=== PATIENT | male | born 1980 | race Caucasian/White ===

== ENCOUNTER 2022-04-16 12:26 | Observation (INO) | payer BC ==
[~2022-04-16] VITALS: Ht 177.8 cm; Wt 84.5 kg
[2022-04-16 12:53] LABS: BASO # 0.1 K/mm3 (0.0-0.2); BASO % 1.1 % (0.0-2.0); EOS # 0.1 K/mm3 (0.0-0.7); EOS % 1.1 % (0.0-4.0); GRAN # 4.5 K/mm3 (1.4-6.5); GRAN % 70.4 % (42.2-75.2); HEMATOCRIT 46.3 % (42.0-52.0); LYMPH # 1.3 K/mm3 (1.2-3.4); LYMPH % 20.8 % (20.0-51.0); MEAN CELL VOLUME 83 fl (80.0-100.0); MEAN CORPUSCULAR HEMOGLOBIN 29 pg (27-31); MEAN CORPUSCULAR HGB CONC 35 g/dl (33.0-37.0); MEAN PLATELET VOLUME 9.3 fl (7.4-10.4); MONO # 0.4 K/mm3 (0.1-0.6); MONO % 6.4 % (1.7-9.3); PLATELET COUNT 251 K/mm3 (130-400); RED BLOOD COUNT 5.55 M/mm3 (4.20-5.60); REDCELL DISTRIBUTION WIDTH-CV 11.9 % (11.5-14.5)
[2022-04-16 13:13] LABS: BILIRUBIN,TOTAL 1.3 mg/dL (0.2-1.2); C-REACTIVE PROTEIN 0.6 mg/dL (0.00-0.50); CALCIUM 9.3 mg/dL (8.4-10.2); CREATININE, serum 1.03 mg/dL (0.72-1.25); POTASSIUM 3.7 mmol/L (3.5-4.5); TOTAL PROTEIN 7.1 gm/dL (6.2-8.1)
[2022-04-16 14:16] LABS: COLLECTION METHOD CLEAN CATCH
[2022-04-16 14:34] LABS: PH 6 (5-8); SQUAMOUS EPITHELIAL None Seen /hpf (0-10); URINE APPEARANCE Clear (CLEAR/HAZY); URINE BACTERIA None Seen /hpf (NONE SEEN); URINE BILIRUBIN Negative (NEGATIVE); URINE BLOOD 1+ (NEGATIVE); URINE COLOR Straw (YELLOW); URINE GLUCOSE Negative (NEGATIVE); URINE KETONE Negative (NEGATIVE); URINE LEUKOCYTE ESTERASE Negative (NEGATIVE); URINE NITRATE Negative (NEGATIVE); URINE PROTEIN(semi-quant) Negative (NEGATIVE); URINE RBC 0-2 /hpf (0-2); URINE UROBILINOGEN Negative (NEGATIVE)
--- NOTE | 2022-04-16 19:39 | NUR ---
PT ADMITED TO THE UNIT FROM ER, ALERT AND ORIENT X4, VSS, ON IVF, ORIENTED TO THE ROOM, PT DENIES COMPLAINS OF PAIN SCHEDULE FOR ABDOMINAL ULTRA SOUND TOMORROW, ON CLEAR LIQUID DIET
[2022-04-16 20:53] VITALS: BP 124/76; PULSE 66; TEMP 98.1
[2022-04-17] VITALS (8 sets, daily range): BP systolic 92–144; BP diastolic 52–90; PULSE 57–82; TEMP 98.2–98.5
--- NOTE | 2022-04-17 05:48 | NUR ---
RESTED THROUGH THE NIGHT WITHOUT INCIDENT. NPO FOR ABD US. DENIES ANY PAIN OR NAUSEA OVERNIGHT.
[2022-04-17 06:42] LABS: BASO # 0.1 K/mm3 (0.0-0.2); BASO % 0.9 % (0.0-2.0); EOS # 0.2 K/mm3 (0.0-0.7); EOS % 2.7 % (0.0-4.0); GRAN # 3.7 K/mm3 (1.4-6.5); HEMATOCRIT 41.7 % (42.0-52.0); HEMOGLOBIN 14.1 g/dl (13.5-18.0); LYMPH % 30.6 % (20.0-51.0); MEAN CELL VOLUME 85 fl (80.0-100.0); MEAN CORPUSCULAR HEMOGLOBIN 29 pg (27-31); MEAN CORPUSCULAR HGB CONC 34 g/dl (33.0-37.0); MEAN PLATELET VOLUME 9.9 fl (7.4-10.4); MONO # 0.6 K/mm3 (0.1-0.6); MONO % 9.5 % (1.7-9.3); PLATELET COUNT 235 K/mm3 (130-400); RED BLOOD COUNT 4.91 M/mm3 (4.20-5.60); REDCELL DISTRIBUTION WIDTH-CV 11.9 % (11.5-14.5)
[2022-04-17 07:20] LABS: ALBUMIN 3.5 gm/dL (3.5-5.0); BILIRUBIN,TOTAL 0.9 mg/dL (0.2-1.2); CALCIUM 8.4 mg/dL (8.4-10.2); CREATININE, serum 0.88 mg/dL (0.72-1.25)
[2022-04-17 07:57] LABS: POTASSIUM 3.8 mmol/L (3.5-4.5)
--- NOTE | 2022-04-17 08:00 | NUR ---
Patient laying in bed, A&Ox4. VSS. IV cDI, fluids infusing. Denies pain and discomfort. NPO for testing. Call light within reach
--- NOTE | 2022-04-17 10:08 | NUR ---
SW met with the patient to discuss discharge plan. The patient lives alone in [place], [place]. He is in [place] visiting his girlfriend, Diane Viramontes (ph#[phone]). He reports independence with ADLs and does not have any DME. The patient's PCP is Dr. Priyank Perez in [place], [place] and he plans on obtaining his medications at [facility] while here. The patient does not have a DPOA-HC in EMR, but he believes he may have one completed and back home. He believes he designated his mother, Fátima (ph#[phone]). He states that his father is still alive. The patient plans to return to his girlfriend's home upon discharge. No additioanl needs at this time. *Discharge plan: home*
[2022-04-17] MEDS ORDERED: NORCO 325 MG-51 TAB PO (16:32)
--- NOTE | 2022-04-17 17:00 | NUR ---
Patient to room 309 from the OR, A&Ox3, drowsy. VSS. IV CDI, fluids by gravity. Denies pain and discomfort. Lap sites x4, CDI. Bandaid. Post op VS monitoring. Call light within reach. Bed alarm on
--- NOTE | 2022-04-17 18:23 | NUR ---
Patient A&Ox4. VSS. IV CDI, fluids infusing. Post op VS monitoring. Independent with the urinal. Denies pain and discomfort. Lap sitesx4 CDI. Call light within reach. Bed alarm on
--- NOTE | 2022-04-17 19:26 | NUR ---
PT AWAKE DENIES ANY NEEDS. STATES HE IS FEELING BETTER, MILD PAIN, BUT NOT SUPER UNCOMFORTABLE. NO OTHER NEEDS AT THIS TIME. PATIENT IS SET TO DISCHARGE. NO OTHER CONCERNS. AT THIS TIME.
--- NOTE | 2022-04-17 20:21 | NUR ---
THE PATIENT DENIES PAIN AND IS GOING HOME AT THIS TIME. DISCHARGE INSTRUCTIONS WERE GIVEN AND PATIENT AND FAMILY AT BEDSIDE VERBALIZED UNDERSTANDING.
== END 2022-04-17 20:10 | disposition home or self-care (01) ==
LOC: COL.ER 12:26 → MEDICAL 15:37 → COL.ER 17:20 → MEDICAL 04-17 20:10
PROVIDERS: Nurse Practitioner Primary Care; ADMIT Surgery
DX: K80.12 Calculus of gallbladder with acute and chronic cholecystitis without obstruction (principal)
CPT/HCPCS: G0378; J0690; J1100; J1885; J1956; J2405; J2704; J7030; J7042; J7120; Q9967